=== PATIENT | female | born 1990 | race Two or more races ===

== ENCOUNTER → 2017-10-04 06:27 | Outpatient (CLI) | payer OTHER | END | disposition home or self-care (01) | LOC: LAB 06:27 | DX: R22.9 Localized swelling, mass and lump, unspecified (principal); I88.8 Other nonspecific lymphadenitis; L04.0 Acute lymphadenitis of face, head and neck; D89.1 Cryoglobulinemia; D59.1 Other autoimmune hemolytic anemias; D86.1 Sarcoidosis of lymph nodes; M04.8 Other autoinflammatory syndromes; M05.80 Other rheumatoid arthritis with rheumatoid factor of unspecified site; M35.8 Other specified systemic involvement of connective tissue; D86.89 Sarcoidosis of other sites ==

== ENCOUNTER 2017-10-04 09:19 | Outpatient (CLI) | payer OTHER | END 2017-10-04 10:28 | disposition home or self-care (01) | LOC: SONOGRAMA 09:19 | DX: R22.2 Localized swelling, mass and lump, trunk (principal) ==

== ENCOUNTER → 2017-10-17 | Outpatient (CLI) | payer OTHER | END | disposition home or self-care (01) | LOC: TOM 10:00 | DX: R22.1 Localized swelling, mass and lump, neck (principal); I88.8 Other nonspecific lymphadenitis; L04.0 Acute lymphadenitis of face, head and neck ==

== ENCOUNTER 2017-12-14 08:26 | Outpatient (CLI) | payer OTHER | END 2017-12-14 08:32 | disposition home or self-care (01) | LOC: LAB 08:26 | DX: R10.2 Pelvic and perineal pain (principal); R51 Headache; R42 Dizziness and giddiness ==

== ENCOUNTER 2018-05-05 20:14 | Emergency (ER) | payer OTHER ==
[~2018-05-05] VITALS: Ht 154.9 cm; Wt 45.4 kg
[2018-05-05] MEDS ORDERED: BACTRIM DS TAB1 EACH PO (22:58)
[2018-05-05] MEDS ORDERED: URIN D.S. TABL1 EACH PO (22:58)
== END 2018-05-05 23:35 | disposition home or self-care (01) ==
LOC: ER 20:14
DX: N39.0 Urinary tract infection, site not specified (principal); B96.29 Other Escherichia coli [E. coli] as the cause of diseases classified elsewhere

== ENCOUNTER → 2018-09-29 | Emergency (ER) | payer OTHER ==
[~2018-09-29] VITALS: Ht 154.9 cm; Wt 47.2 kg
[~2018-09-29] MED LIST: BACTRIM DS TAB1 EACH PO; URIN D.S. TABL1 EACH PO
== END | disposition home or self-care (01) ==
LOC: ER 22:37
DX: R50.9 Fever, unspecified (principal)

== ENCOUNTER 2020-06-10 09:44 | Outpatient (CLI) | payer OTHER | END 2020-06-10 15:00 | disposition home or self-care (01) | LOC: PPH VACUNA 09:44 | DX: Z23 Encounter for immunization (principal) ==

== ENCOUNTER 2022-03-17 14:31 | Outpatient (CLI) | payer OTHER | END 2022-03-17 14:36 | disposition home or self-care (01) | LOC: PPH VACUNA 14:31 | PROVIDERS: ATTEND Emergency Medicine Pediatric Emergency Medicine | DX: Z23 Encounter for immunization (principal) ==

== ENCOUNTER 2022-04-13 12:11 | Outpatient (CLI) | payer OTHER | END 2022-04-13 12:16 | disposition home or self-care (01) | LOC: SONOGRAMA 12:11 | PROVIDERS: ATTEND Obstetrics & Gynecology | DX: Z12.31 Encounter for screening mammogram for malignant neoplasm of breast (principal); N64.4 Mastodynia; N63.0 Unspecified lump in unspecified breast ==

== ENCOUNTER 2022-08-11 14:20 | Outpatient (CLI) | payer OTHER | END 2022-08-11 14:28 | disposition home or self-care (01) | LOC: LAB 14:20 | DX: E16.2 Hypoglycemia, unspecified (principal); N39.0 Urinary tract infection, site not specified; E78.2 Mixed hyperlipidemia; E56.9 Vitamin deficiency, unspecified; E55.9 Vitamin D deficiency, unspecified; E03.8 Other specified hypothyroidism; R97.1 Elevated cancer antigen 125 [CA 125]; R53.1 Weakness; E66.01 Morbid (severe) obesity due to excess calories; Z11.3 Encounter for screening for infections with a predominantly sexual mode of transmission ==

== ENCOUNTER → 2023-03-18 | Outpatient (CLI) | payer OTHER | END | disposition home or self-care (01) | LOC: PPH VACUNA 07:30 | PROVIDERS: ATTEND Emergency Medicine Pediatric Emergency Medicine | DX: Z23 Encounter for immunization (principal) | CPT/HCPCS: 90686; G0008 ==

== ENCOUNTER 2024-04-25 04:40 | Outpatient (CLI) | payer OTHER | END 2024-04-25 05:00 | disposition home or self-care (01) | LOC: PPH VACUNA 04:40 | PROVIDERS: ATTEND Emergency Medicine Pediatric Emergency Medicine | DX: Z23 Encounter for immunization (principal) ==

== ENCOUNTER → 2024-07-25 09:26 | Outpatient (CLI) | payer OTHER ==
[2024-07-25 09:49] LABS: HEMOGLOBIN 13.9 g/dL (12.0-15.00); MEAN CORPUSCULAR HEMOGLOBIN 28.8 pg (27.00-32.0); MEAN CORPUSCULAR HGB CONC 33.1 g/dl (32.0-36.0); PLATELET COUNT 259 K/uL (150-450); RED BLOOD COUNT 4.83 M/uL (4.00-6.00); RED CELL DISTRIBUTION WIDTH 12.8 % (11.5-14.5)
[2024-07-25 10:42] LABS: MYCOPLASMA PNEUMONIAE IGM REACTIVE (NO REACTIVE)
[2024-07-25 11:07] LABS: FREE TRIODOTIRONINE 2.47 pg/ml (2.18-3.98); T4 TOTAL 8.74 UG/DL (4.8-13.9); TSH 3.1 uIU/mL (0.358-3.74)
== END | disposition home or self-care (01) ==
LOC: LAB 09:26
DX: R50.9 Fever, unspecified (principal); R05.9 Cough, unspecified; J11.00 Influenza due to unidentified influenza virus with unspecified type of pneumonia; Z20.822 Contact with and (suspected) exposure to COVID-19; R94.6 Abnormal results of thyroid function studies

== ENCOUNTER 2024-12-20 08:25 | Outpatient (CLI) | payer OTHER ==
[2024-12-20 09:28] LABS: BASO % 0.4 % (0.1-1.2); HEMATOCRIT 38.6 % (34.1-44.9); HEMOGLOBIN 12.5 g/dL (11.2-15.7); LYMPH # 1.76 (1.18-3.74); LYMPH % 34.6 % (19.3-53.1); MEAN CORPUSCULAR HEMOGLOBIN 28.3 pg (25.6-32.2); MONO # 0.38 (0.24-0.82); MONO % 7.5 % (4.7-12.5); NEUT # 2.82 (1.56-6.13); NEUT % 55.3 % (34.0-71.1); PLATELET COUNT 248 K/uL (163-369); RED BLOOD COUNT 4.41 M/uL (3.93-5.22); RED CELL DISTRIBUTION WIDTH 12.7 % (11.6-14.4)
[2024-12-20 09:38] LABS: PH,URINE 7.5 (5.0-8.0); URINE APPEARANCE Clear; URINE BILIRRUBIN Negative (NEGATIVE); URINE BLOOD Large; URINE COLOR Yellow; URINE GLUCOSE Negative (NEGATIVE); URINE KETONE Negative (NEGATIVE); URINE LEUKOCYTE Negative; URINE NITRATE Negative; URINE PROTEIN Negative (NEGATIVE); URINE UROBILINOGEN 0.2 E.U./dl
[2024-12-20 09:39] LABS: URINE BACTERIA 91.7 uL (0.0-1933); URINE EPITHELIAL CELLS 6.3 uL (0.0-38.8); URINE RBC 5.7 uL (0.0-20.8); URINE WBC 3.4 uL (0.0-23.2)
[2024-12-20 09:47] LABS: URINE CAST 0.14 uL (0.0-1.40)
[2024-12-20 09:58] LABS: INR 0.98; PARTIAL THROMBOPLASTIN TIME 28.9 SECONDS (22.0-34.0); PROTHROMBIN TIME 10.7 SECONDS (9.0-11.5)
[2024-12-20 10:50] LABS: ALBUMIN 3.9 gm/dL (3.4-5.0); BILIRUBIN TOTAL 0.52 mg/dL (0.3-1.2); CALCIUM 8.8 mg/dL (8.5-10.1); CHOL HDL RATIO 2.6 (0-5.0); CREATININE SERUM 0.58 mg/dL (0.55-1.02); GFR 119.72; GLOBULINA 2.8 G/DL (2.4-3.5); POTASSIUM 4.13 mEq/L (3.5-5.1); T4 TOTAL 8.45 UG/DL (4.8-13.9); TOTAL PROTEIN 6.7 gm/dL (6.4-8.2); TSH 4.01 uIU/mL (0.358-3.74)
[2024-12-20 11:20] LABS: T3 TOTAL 1.24 ng/ml (0.846-2.02); VITAMIN D3 25 HYDROXY 28.87 ng/ml (30-120)
[2024-12-21 05:11] LABS: CA 125 31.8 U/mL (0.0-38.1); ESTRADIOL SERUM 49.2 pg/mL (.); FOLLICLE STIMULATING HORMONE 7.2 mIU/mL (.)
== END 2024-12-20 08:32 | disposition home or self-care (01) ==
LOC: LAB 08:25
DX: D28.9 Benign neoplasm of female genital organ, unspecified (principal); E16.2 Hypoglycemia, unspecified; N39.0 Urinary tract infection, site not specified; E78.2 Mixed hyperlipidemia; E56.9 Vitamin deficiency, unspecified; E55.9 Vitamin D deficiency, unspecified; E03.9 Hypothyroidism, unspecified; R97.1 Elevated cancer antigen 125 [CA 125]; R53.1 Weakness; E66.01 Morbid (severe) obesity due to excess calories; Z11.3 Encounter for screening for infections with a predominantly sexual mode of transmission; D68.9 Coagulation defect, unspecified

== ENCOUNTER 2024-12-20 14:22 | Outpatient (CLI) | payer OTHER | END 2024-12-20 14:27 | disposition home or self-care (01) | LOC: MRI 14:22 | PROVIDERS: ATTEND Obstetrics & Gynecology | DX: D25.9 Leiomyoma of uterus, unspecified (principal) | CPT/HCPCS: 72197 ==

== ENCOUNTER 2025-05-03 16:30 | Outpatient (CLI) | payer OTHER | END 2025-05-03 16:40 | disposition home or self-care (01) | LOC: PPH VACUNA 16:30 | PROVIDERS: ATTEND Emergency Medicine Pediatric Emergency Medicine | DX: Z23 Encounter for immunization (principal) ==